=== PATIENT | male | born 1970 | race Two or more races ===

== ENCOUNTER 2017-05-25 10:48 | Emergency (ER) | payer OTHER ==
[~2017-05-25] VITALS: Ht 162.6 cm; Wt 74.8 kg
== END 2017-05-25 12:00 | disposition home or self-care (01) ==
LOC: ER 10:48
DX: T15.12XA Foreign body in conjunctival sac, left eye, initial encounter (principal)

== ENCOUNTER 2018-12-30 19:20 | Emergency (ER) | payer OTHER ==
[~2018-12-30] VITALS: Ht 162.6 cm; Wt 68.0 kg
== END 2018-12-30 21:42 | disposition home or self-care (01) ==
LOC: ER 19:20
DX: M54.5 Low back pain (principal)